=== PATIENT | female | born 1950 | race African-American/Black ===

== ENCOUNTER 2022-05-18 10:24 | Emergency (ER) | payer OTHER, MEDICARE, SELFPAY ==
--- NOTE | ~2022-05-18 | XR_ITS ---
Left Shoulder Technique: AP and scapular Y views were obtained. Clinical History: Pain Findings: No fracture or dislocation is seen. Osseous alignment is anatomic. The glenohumeral and acr omioclavicular joint spaces are preserved. Soft tissues are unremarkable. Impression: Unremarkable left shoulder radiographs. Reviewed, dictated and finalized at [facility]. [facility] Impression: Unremarkable left shoulder radiographs.
--- NOTE | ~2022-05-18 | XR_ITS ---
Lumbosacral Spine: AP and lateral views Clinical History: Pain Findings: The normal lordotic curve is maintained. No acute fracture or subluxation and right. There is anterior fusion from L5 to S1 with fusion across L5-S1 disc space. There is advanced degenerative disc disease at L4-L5. There is mild degenerative disc disease at L3-L4. Facet joint degenerative manuel nges are present from L3 through S1. The sacroiliac joints are normally outlined. Impression: No acute fracture or sublocation. Anterior fusion from L5 to S1. Mild to moderate degenerative spondylosis, as detailed above. Reviewed, dictated and finalized at location [facility]. [employer] Impression: No acute fracture or sublocation. Anterior fusion from L5 to S1. Mild to moderate degenerative spondylosis, as detailed above.
[2022-05-18 10:49] VITALS: BP 143/80; PULSE 73; RESP 16; TEMP 36.6; O2SAT 100
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
== END 2022-05-18 12:47 | disposition home or self-care (01) ==
PROVIDERS: Emergency Provider Physician Assistant
DX: S39.92XA Unspecified injury of lower back, initial encounter (principal); S49.92XA Unspecified injury of left shoulder and upper arm, initial encounter; V49.40XA Driver injured in collision with unspecified motor vehicles in traffic accident, initial encounter
CPT/HCPCS: 72100; 73030; 99284

== ENCOUNTER 2022-05-29 16:20 | Emergency (ER) | payer OTHER, MEDICARE, SELFPAY ==
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
[2022-05-29 16:23] VITALS: BP 142/69; PULSE 70; RESP 16; TEMP 36.3; O2SAT 99
[2022-05-29 16:35] LABS: Basophils Percent Auto 0.4 % (0.2-1.2); Eosinophils Absolute Auto 0.1 K/mm3 (0-0.3); Eosinophils Percent Auto 1.3 % (0-4.4); Hematocrit 37.9 % (37.0-47.0); Lymphocytes Absolute Auto 2.11 K/mm3 (0.9-3.2); Lymphocytes Percent Auto 45.6 % (18.3-44.2); Mean Corpuscular HGB Conc 31.7 g/dl (32-36); Mean Corpuscular Hemoglobin 29.6 pg (26-34); Mean Corpuscular Volume 93.6 fl (80-100); Mean Platelet Volume 9.6 fl (7.4-10.4); Monocytes Absolute Auto 0.6 K/mm3 (0.1-0.6); Monocytes Percent Auto 12.3 % (2.6-8.5); Neutrophils Absolute Auto 1.9 K/mm3 (1.3-6.7); Neutrophils Percent Auto 40.4 % (45.5-73.1); Platelet Count Result 229 k/mm3 (150-375); Red Blood Count 4.05 M/mm3 (4.2-5.4); Red Cell Distribution Width 13.1 % (11.5-14.5); White Blood Count 4.6 K/mm3 (4.5-10.0)
[2022-05-29 16:56] LABS: Alanine Aminotransferase 42 U/L (6-35); Alkaline Phosphatase 81 U/L (38-126); Anion Gap 6 mmol/L (8-16); Aspartate Amino Transferase 41 U/L (14-36); Bilirubin,Total 0.4 mg/dL (0.2-1.3); Blood Urea Nitrogen 14 mg/dL (7-17); Calcium 8.5 mg/dL (8.4-10.2); Carbon Dioxide 27 mmol/L (22-30); Chloride 111 mmol/L (98-107); Estimated CRCL calculation 63 ml/min; Estimated Glomerular Filt Rate > 60; Glucose 102 mg/dL (65-110); Lipase 56 U/L (23-300); Potassium 3.8 mmol/L (3.4-5.0); Sodium 144 mmol/L (137-145)
[2022-05-29 16:59] LABS: Appearance Urine Clear (Clear); Bacteria Urine Rare /hpf; Bilirubin Urine Negative (Negative); Blood Urine Negative (Negative); Color Urine Yellow (Yellow); Glucose Urine UA Negative (Negative); Ketones Urine Negative (Negative); Leukocyte Esterase Ur Trace LEU/UL (Negative); Nitrate Urine Negative (Negative); Non Pathogenic Casts 0-2; Protein Urine Negative (Negative); RBC Urine 0-2 /hpf (0-2); Specific Grav Ur 1.025 (1.001-1.035); Squamous Epithelial Cell Urine Occasional /hpf (Few)
[2022-05-29 17:05] LABS: Add Urine Microscopic? YES
[2022-05-29 18:11] LABS: Albumin Level 4.3 g/dL (3.5-5.1)
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
[2022-05-29 20:59] VITALS: BP 144/89; PULSE 78; O2SAT 100
== END 2022-05-29 21:00 | disposition home or self-care (01) ==
PROVIDERS: Emergency Medicine; Emergency Provider Emergency Medicine
DX: N20.1 Calculus of ureter (principal); R10.32 Left lower quadrant pain; V49.49XA Driver injured in collision with other motor vehicles in traffic accident, initial encounter
CPT/HCPCS: 36415; 71260; 74177; 80053; 81001; 83690; 85025; 99284; Q9967

== ENCOUNTER 2022-06-12 06:40 | Outpatient (CLI) | payer MEDICARE, SELFPAY ==
--- NOTE | ~2022-06-12 | XR_ITS ---
EXAMINATION: XR abdomen/kub 1V DATE: 06/12/2022 07:05 INDICATION: Gross hematuria. TECHNIQUE: A supine view of the abdomen on 2 radiographs was obtained. COMPARISON: CT abdomen and pelvis 06/12/2022 FINDINGS: There are no dilated loops of bowel. There are phleboliths in the pelvis. There is a 12 mm stone overlying the bladder in the area of the right ureteral orifice. IMPRESSION: 1. 12 mm stone overlying the bladder in the area of the right ureteral orifice. Reviewed, dictated and finalized at location A. [employer] SU[employer]
--- NOTE | ~2022-06-12 | CT_ITS ---
CT of the Abdomen and Pelvis: Indication: Hematuria Technique: 2.5 mm axial scans were obtained through the abdomen and pelvis prior to and following in travenous administration of 130 cc of Omnipaque 350. Dose reduction technique was used on this scan b y utilizing automated exposure control and iterative reconstruction technique. The dose-length produc t (DLP) was 1468.10 mGy-cm. COMPARISON: 05/29/2022 Findings: Scans through the lung bases are unremarkable. The liver, spleen, pancreas, gallbladder, adrenals and kidneys are within normal limits. No evidence of aortic aneurysm. Ureters are unremarkable. No lymphadenopathy. There are atherosclerotic calcific ations of the aorta. No bowel obstruction or bowel wall thickening. There is no evidence to suggest acute appendicitis. Th ere is sigmoid diverticulosis. Images through the pelvis were performed. Postcontrast images demonstrate a 1.2 cm stone contained wi thin a right ureterocele at the urinary bladder. Patient is post hysterectomy. No adnexal mass seen. No ascites. Impression: 1.2 cm stone within a right ureterocele at the level of the urinary bladder. This is best demonstrate d on postcontrast images. Sigmoid diverticulosis. Reviewed, dictated and finalized at location . [employer]IC OFFICER Impression: 1.2 cm stone within a right ureterocele at the level of the urinary bladder. Th is is best demonstrated on postcontrast images. Sigmoid diverticulosis.
== END 2022-06-12 06:41 | disposition home or self-care (01) ==
LOC: ANHIMG 06:45
PROVIDERS: Visit Provider Nurse Practitioner Adult Health
DX: R31.0 Gross hematuria (principal); N20.1 Calculus of ureter; K57.30 Diverticulosis of large intestine without perforation or abscess without bleeding; N21.0 Calculus in bladder
CPT/HCPCS: 74018; 74178; Q9967